=== PATIENT | female | born 1985 | race American Indian/Alaskan Native ===

== ENCOUNTER 2021-03-23 11:08 | Emergency (ER) | payer MEDICAID ==
[2021-03-23] MEDS ORDERED: ONDANSETRON 4 MG ODT TAB PO ONE (13:03)
--- NOTE | 2021-03-23 13:17 | Emergency Department Report ---
Minor Respiratory - HPI Chief Complaint: Dyspnea/Respdistress Stated Complaint: MEDICATION Time Seen by Provider: 03/23/21 12:52 Minor Respiratory: Yes Able to Tolerate Fluids, Yes Cough, Yes Sick Contacts, No Rhinorrhea, No Sore Throat, No Ear Pain, No Hemoptysis, No Chest Pain, No Shortness of Breath, No Fever Other History: 35-year-old -[place] female presents to the emergency room complaining of 2-week history of nausea cough headache diarrhea body aches. She is unvaccinated for Covid and flu. She states that her family started off with them the symptoms and now she has them. She has not been tested for Covid. She states the worst is the nausea and the body aches. She states has been taken [id number] TheraFlu ibuprofen Tylenol and ZzzQuil. She denies any past medical history takes no meds on a daily basis. ED Review of Systems ROS: Stated complaint: MEDICATION Other details as noted in HPI Comment: All other systems reviewed and negative ED Past Medical Hx - Past Medical History Previous Medical History?: No Hx Hypertension: No Hx Congestive Heart Failure: No Hx Diabetes: No Hx Deep Vein Thrombosis: No Hx Renal Disease: No Hx Sickle Cell Disease: No Hx Seizures: No Hx Asthma: No Hx COPD: No Hx HIV: No - Surgical History Past Surgical History?: No - Social History Smoking Status: Former Smoker - Medications Home Medications: Home Medications Medication Instructions Recorded Confirmed Last Taken Type amLODIPine 10 mg PO QDAY #60 tablet 01/25/13 Unknown Rx labetaloL [Labetalol 100mg TAB] 300 mg PO BID #60 tablet 01/25/13 Unknown Rx Azithromycin [Zithromax Z-EFRA] 250 mg PO DAILY #6 tab 03/23/21 Unknown Rx Ondansetron [Zofran Odt] 4 mg PO Q8HR #6 tab.rapdis 03/23/21 Unknown Rx Prednisone [predniSONE 5 mg (6-Day 5 mg PO .TAPER #1 tab.ds.pk 03/23/21 Unknown Rx Pack, 21 Tabs)] Minor Respiratory Exam - Exam General: Vital signs noted. No distress. Alert and acting appropriately. HEENT: Yes Moist Mucous Membranes, No Pharyngeal Erythema, No Pharyngeal Exudates, No Rhinorrhea, No Conjuctival Injection, No Frontal Tenderness, No Maxillary Tenderness Ear: Neither TM Bulge, Neither TM Erythema, Neither EAC Pain, Neither EAC Discharge Neck: Yes Supple, No Adenopathy Lungs: Yes Good Air Exchange, No Wheezes, No Ronchi, No Stridor, No Cough, No Labored Respirations, No Retractions, No Use of Accessory Muscles, No Other Abnormal Lung Sounds Heart: Yes Regular, No Murmur Abdomen: Yes Normal Bowel Sounds, No Tenderness, No Peritoneal Signs Skin: No Rash, No Edema Neurologic: Alert and oriented, no deficits. Musculoskeletal: Unremarkable. ED Course Vital Signs 03/23/21 12:26 Temperature 98 F Pulse Rate 99 H Respiratory 16 Rate Blood Pressure 138/75 [Left] O2 Sat by Pulse 100 Oximetry ED Medical Decision Making - Medical Decision Making 35-year-old -[place] female presents to the emergency room complaining of 2-week history of nausea cough headache diarrhea body aches. She is unvaccinated for Covid and flu. She states that her family started off with them the symptoms and now she has them. She has not been tested for Covid. She states the worst is the nausea and the body aches. She states has been taken [id number] TheraFlu ibuprofen Tylenol and ZzzQuil. She denies any past medical history takes no meds on a daily basis. Zofran 4 mg ODT and p.o. challenge Critical care attestation.: If time is entered above; I have spent that time in minutes in the direct care of this critically ill patient, excluding procedure time. ED Disposition Clinical Impression: Suspected COVID-19 virus infection, Viral illness Disposition: HOME / SELF CARE / HOMELESS Is pt being admited?: No Does the pt Need Aspirin: No Condition: Stable Instructions: Viral Respiratory Infection, [id number], COVID-19 Frequently Asked Questions, Prevent the Spread of COVID-19 if You Are Sick - CDC, COVID-19: How to Protect Yourself and Others - CDC Additional Instructions: Your symptoms appear most consistent with a nonspecific viral syndrome. However, given this current pandemic, COVID-19 is in the differential of possibilities. Despite your previous negative COVID-19 test, I do recommend repeat outpatient Covid 19 testing. In the meantime, isolate/quarantine yourself and stay away from anyone who is elderly, immunocompromised or chronically ill. You can use ibuprofen every 6-8 hours and Tylenol every 4-8 hours, using the dosing on the back of the bottle, as needed for any fever or body aches. Return to the emergency department with any worsening of your symptoms, development of chest pain or shortness of breath, or with any acute distress. Prescriptions: Prednisone [predniSONE 5 mg (6-Day Pack, 21 Tabs)] 5 mg PO .TAPER #1 tab.ds.pk Azithromycin [Zithromax Z-EFRA] 250 mg PO DAILY #6 tab Ondansetron [Zofran Odt] 4 mg PO Q8HR #6 tab.rapdis Referrals: Your, primary care provider [Other] - 3-5 Days Time of Disposition: 13:23
[2021-03-23 13:25] VITALS: BP 127/69
== END 2021-03-23 13:44 | disposition home or self-care (01) ==
LOC: ED 11:08
DX: Z20.822 Contact with and (suspected) exposure to COVID-19 (principal); B34.9 Viral infection, unspecified; Z87.891 Personal history of nicotine dependence
CPT/HCPCS: 99282; J3490; Q0162